=== PATIENT | male | born 1975 | race Caucasian/White ===

== ENCOUNTER 2020-10-03 12:29 | Emergency (ER) | payer OTHER ==
--- NOTE | 2020-10-03 13:32 | ER ---
Nurse's Notes [facility] Name: Kermit Akhtar Age: 45 yrs Sex: Male : 1975 Arrival Date: 10/03/2020 Time: 12:31 Bed 16 Private MD: Diagnosis: Low back pain Presentation: 10/03 12:45 Chief complaint: Patient states: Pulled my back playing golf an hour ago. Had this ca1 happen in the past. Pt refuses to sit and appears uncomfortable. Took Aleve x 3 tabs COO. Coronavirus screen: Client denies travel out of the [place] in the last 14 days. At this time, the client does not indicate any symptoms associated with coronavirus-19. Ebola Screen: Patient negative for fever greater than or equal to 101.5 degrees Fahrenheit, and additional compatible Ebola Virus Disease symptoms Patient denies exposure to infectious person. Patient denies travel to an Ebola-affected area in the 21 days before illness onset. No symptoms or risks identified at this time. Initial Sepsis Screen: Does the patient meet any 2 criteria? No. Patient's initial sepsis screen is negative. Does the patient have a suspected source of infection? No. Patient's initial sepsis screen is negative. Risk Assessment: Do you want to hurt yourself or someone else? Patient reports no desire to harm self or others. Onset of symptoms was October 03, 2020. 12:45 Method Of Arrival: Ambulatory ca1 12:45 Acuity: DEDRA 4 ca1 Historical: - Allergies: 12:47 No Known Allergies; ca1 - Home Meds: 12:47 rosuvastatin oral [Active]; ca1 - PMHx: 12:47 Hypercholesterolemia; ca1 - Immunization history:: Client reports receiving the 2nd dose of the Covid vaccine, Client reports receiving the 1st dose of the Covid vaccine, Flu vaccine is not up to date. - Social history:: Smoking status: Patient denies any tobacco usage or history of. Screenin:49 Abuse screen: Denies threats or abuse. Denies injuries from another. Nutritional zb screening: No deficits noted. Tuberculosis screening: No symptoms or risk factors identified. Fall Risk None identified. Assessment: 13:47 General: Appears uncomfortable, Behavior is calm, cooperative, appropriate for age. zb Pain: Complains of pain in lumbar area Pain does not radiate. Pain currently is 8 out of 10 on a pain scale. Quality of pain is described as aching, crampy, squeezing, throbbing, Pain began today Alleviated by rest, Aggravated by increased activity, repositioning, weight bearing, Noted to be guarding. Neuro: Level of Consciousness is awake, alert, obeys commands, Oriented to person, place, time, Rfid Manager are equal bilaterally Moves all extremities. Full function. Cardiovascular: Capillary refill < 3 seconds Patient's skin is warm and dry. Respiratory: Airway is patent. Derm: Skin is intact, is healthy with good turgor, Skin is dry, Skin is normal. Musculoskeletal: Range of motion: Reports pain in lumbar area. Vital Signs: 12:45 BP 123 / 91; Pulse 90; Resp 19; Temp 98(TE); Pulse Ox 100% on R/A; Weight 113.4 kg (R); ca1 Height 6 ft. 5 in. (195.58 cm) (R); Pain 8/10; 13:48 BP 120 / 80; Pulse 88; Resp 16; Pulse Ox 100% on R/A; zb 12:45 Body Mass Index 29.65 (113.40 kg, 195.58 cm) ca1 ED Course: 12:31 Patient arrived in ED. mr 12:47 Triage completed. ca1 12:47 Arm band placed on right wrist. ca1 12:52 Sarah Mg FNP-C is PHCP. kb 12:52 Rudy Garcia MD is Attending Physician. kb 13:46 Jossie Chu RN is Primary Nurse. zb 13:49 Patient has correct armband on for positive identification. Call light in reach. Side zb rails up X 1. Pulse ox on. NIBP on. Door closed. Noise minimized. Administered Medications: 13:38 Drug: Decadron (dexamethasone) 10 mg Route: IM; Site: right gluteus; zb 14:08 Follow up: Response: No adverse reaction; No change in condition; Pain is decreased zb 13:38 Drug: [place] (HYDROcodone-acetaminophen) (7.5 mg-325 mg) 1 tabs {Note: RASS +1.} Route: zb PO; 14:08 Follow up: Response: No adverse reaction; No change in condition; Pain is decreased; zb RASS: Alert and Calm (0) 13:47 Drug: Flexeril (cyclobenzaprine) 10 mg Route: PO; zb 14:08 Follow up: Response: No adverse reaction; Marked relief of symptoms; Pain is decreased zb 13:47 Drug: Lidoderm Patch 5 % (700 mg/patch) 1 patches Route: Topical; Site: affected area; zb 14:08 Follow up: Response: No adverse reaction; Marked relief of symptoms; Pain is decreased zb Outcome: 13:32 Discharge ordered by . candido 14:09 Patient left the ED. zb Signatures: Sarah Mg, [employer] SUPERVISOR-C CAR[employer] P[employer]ER [employer]ATING SUPERVISOR-Ckopal Yancy Edmondson mr Daksha Forrest, RN RN ca1 Jossie Chu RN RN zb Corrections: (The following items were deleted from the chart) 12:48 12:45 Chief complaint: Patient states: Pulled my back playing golf an hour ago. Had ca1 this happen in the past. Pt refuses to sit and appears uncomfortable ca1
--- NOTE | 2020-10-03 13:32 | EDPHYS ---
Physician Documentation [facility] Name: Kermit Akhtar Age: 45 yrs Sex: Male : 1975 Arrival Date: 10/03/2020 Time: 12:31 Bed 16 Private MD: WOODY Physician Rudy Garcia HPI: 10/03 13:21 This 45 yrs old Male presents to ER via Ambulatory with complaints of Back kb Pain. 13:21 The patient presents with pain that is acute. The symptoms are located in the low back. kb Onset: The symptoms/episode began/occurred just prior to arrival. The pain does not radiate. Associated signs and symptoms: The patient has no apparent associated signs or symptoms. The problem was sustained playing sports, golf. Modifying factors: The patient symptoms are alleviated by nothing, the patient symptoms are aggravated by nothing. Severity of symptoms: At their worst the symptoms were moderate, in the emergency department the symptoms are unchanged. The patient has experienced similar episodes in the past, several times. The patient has not recently seen a physician. 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 States he has done this several times in the past and knows his back will spasm and tighten if he lays down. States he normally needs muscle relaxers for it so he came in. Denies radiating pain, urinary symptoms, numbness/tingling. . Historical: - Allergies: 12:47 No Known Allergies; ca1 - Home Meds: 12:47 rosuvastatin oral [Active]; ca1 - PMHx: 12:47 Hypercholesterolemia; ca1 - Immunization history:: Client reports receiving the 2nd dose of the Covid vaccine, Client reports receiving the 1st dose of the Covid vaccine, Flu vaccine is not up to date. - Social history:: Smoking status: Patient denies any tobacco usage or history of. ROS: 13:19 Constitutional: Negative for fever, chills, and weight loss, : Negative for injury, kb bleeding, discharge, and swelling, MS/Extremity: Negative for injury and deformity, Skin: Negative for injury, rash, and discoloration, Neuro: Negative for headache, weakness, numbness, tingling, and seizure. 13:19 Back: Positive for pain at rest, of the lumbar area. Exam: 13:18 Constitutional: This is a well developed, well nourished patient who is awake, alert, kb and in no acute distress. Head/Face: Normocephalic, atraumatic. ENT: Moist Mucous membranes Respiratory: Respirations even and unlabored. No increased work of breathing, no retractions or nasal flaring. Skin: Warm, dry with normal turgor. Normal color. MS/ Extremity: Pulses equal, no cyanosis. Neurovascular intact. Full, normal range of motion. Neuro: Awake and alert, GCS 15, oriented to person, place, time, and situation. Moves all extremities. Normal gait. Psych: Awake, alert, with orientation to person, place and time. Behavior, mood, and affect are within normal limits. 13:18 Back: pain, that is moderate, of the lumbar area, ROM is normal, normal spinal alignment noted. Vital Signs: 12:45 BP 123 / 91; Pulse 90; Resp 19; Temp 98(TE); Pulse Ox 100% on R/A; Weight 113.4 kg (R); ca1 Height 6 ft. 5 in. (195.58 cm) (R); Pain 8/10; 13:48 BP 120 / 80; Pulse 88; Resp 16; Pulse Ox 100% on R/A; zb 12:45 Body Mass Index 29.65 (113.40 kg, 195.58 cm) ca1 MDM: 13:00 Patient medically screened. kb 13:18 Data reviewed: vital signs, nurses notes. Data interpreted: Pulse oximetry: on room air kb is 100 %. Interpretation: normal. Counseling: I had a detailed discussion with the patient and/or guardian regarding: the historical points, exam findings, and any diagnostic results supporting the discharge/admit diagnosis, the need for outpatient follow up, a family practitioner, to return to the emergency department if symptoms worsen or persist or if there are any questions or concerns that arise at home. Administered Medications: 13:38 Drug: Decadron (dexamethasone) 10 mg Route: IM; Site: right gluteus; zb 14:08 Follow up: Response: No adverse reaction; No change in condition; Pain is decreased zb 13:38 Drug: [place] (HYDROcodone-acetaminophen) (7.5 mg-325 mg) 1 tabs {Note: RASS +1.} Route: zb PO; 14:08 Follow up: Response: No adverse reaction; No change in condition; Pain is decreased; zb RASS: Alert and Calm (0) 13:47 Drug: Flexeril (cyclobenzaprine) 10 mg Route: PO; zb 14:08 Follow up: Response: No adverse reaction; Marked relief of symptoms; Pain is decreased zb 13:47 Drug: Lidoderm Patch 5 % (700 mg/patch) 1 patches Route: Topical; Site: affected area; zb 14:08 Follow up: Response: No adverse reaction; Marked relief of symptoms; Pain is decreased zb Disposition: 10/04 13:17 Co-signature as Attending Physician, Rudy Garcia MD I agree with the assessment and jeniffer plan of care. Disposition Summary: 10/03/20 13:32 Discharge Ordered Location: Home kb Condition: Stable kb Diagnosis - Low back pain kb Followup: kb - With: Emergency Department - When: As needed - Reason: Worsening of condition Followup: kb - With: Private Physician - When: 2 - 3 days - Reason: Recheck today's complaints, Continuance of care, Re-evaluation by your physician Discharge Instructions: - Discharge Summary Sheet kb - Back Injury Prevention, [id number] kb - Back Exercises, [id number] kb Forms: - Medication Reconciliation Form kb - Thank You Letter kb - Antibiotic Education kb - Prescription Opioid Use kb Prescriptions: - Cyclobenzaprine 10 mg Oral Tablet - take 1 tablet by ORAL route every 8 hours As needed; 21 tablet; Refills: 0, kb Product Selection Permitted Signatures: Sarah Mg FNP-C FNP-Ckb Anderson, Corey, MD MD cha Acob, Cheryl RN Jossie Thompson RN RN zb
[2020-10-03] MEDS ORDERED: HYDROCODONE/APAP 7.5/325 MG TAB ONE (13:59)
[2020-10-03] MEDS ORDERED: CYCLOBENZAPRINE 10 MG TAB ONE (13:59)
[2020-10-03] MEDS ORDERED: LIDOCAINE 4% PATCH ONE (14:00)
[2020-10-03] MEDS ORDERED: dexAMETHasone 10 MG/ML VIAL ONE (14:00)
[2020-10-03 14:14] VITALS: TEMP 98; O2SAT 100
[2020-10-03 14:15] VITALS: BP 120/80
== END 2020-10-03 14:09 | disposition home or self-care (01) ==
LOC: ER 12:29
DX: M54.5 Low back pain (principal); E78.00 Pure hypercholesterolemia, unspecified
CPT/HCPCS: 96372; 99283; J1100